=== PATIENT | female | born 2000 | race Caucasian/White ===

== ENCOUNTER 2023-02-03 15:25 | Emergency (ER) | payer SELFPAY ==
[~2023-02-03] VITALS: Ht 172.7 cm; Wt 82.0 kg
[2023-02-03 15:27] VITALS: BP 142/83
[2023-02-03] MEDS ORDERED: NITROGLYCERIN 0.4MG TABLET SL SL PRN (16:15)
[2023-02-03] MEDS ORDERED: ASPIRIN 81MG TABLET PO ONE (16:15)
[2023-02-03] MEDS ORDERED: MAGNESIUM/ALUMINUM HYDROXIDE/SIMETHICONE 30ML UDC PO STA (16:19)
[2023-02-03] MEDS ORDERED: FAMOTIDINE 20MG TABLET PO ONE (16:30)
== END 2023-02-03 17:04 | disposition left against medical advice (07) ==
LOC: ER 15:25
DX: R07.9 Chest pain, unspecified (principal); R10.9 Unspecified abdominal pain; K21.9 Gastro-esophageal reflux disease without esophagitis
CPT/HCPCS: 71045; 93005; 99283; Z7610